=== PATIENT | female | born 1980 | race Two or more races ===

== ENCOUNTER 2016-11-13 20:11 | Emergency (ER) | payer SELFPAY ==
[~2016-11-13] VITALS: Ht 165.1 cm; Wt 92.2 kg
[2016-11-13] MEDS ORDERED: EPINEPHrine 1 MG/ML VIAL ONE (20:30)
[2016-11-13] MEDS ORDERED: EPINEPHrine 1 MG/ML VIAL IM ONE (20:30)
[2016-11-13 20:54] VITALS: BP 123/66
[2016-11-13] MEDS ORDERED: methylPREDNISolone SOD SUCC PF 125 MG/2 ML VIAL. IV ONE (21:00)
[2016-11-13] MEDS ORDERED: FAMOTIDINE 20 MG/2 ML VIAL IVP ONE (21:00)
[2016-11-13] MEDS ORDERED: diphenhydrAMINE 50 MG/ML VIAL IV ONE (21:00)
--- NOTE | 2016-11-13 21:16 | PHYS DOC ---
Past Medical History Past Medical History: No Pertinent History Past Surgical History: No Surgical History Alcohol Use: None Drug Use: None Adult General Chief Complaint Chief Complaint: ALLERGIC REACTION HPI HPI 36-year-old female presenting to the emergency department today with rash and having allergic reaction to unknown substance. She has been having these reactions over the past 6 months and is unsure exactly what is causing them. She reports having seen an supply chain logistics manager but has not gotten to the bottom of it. Her rash started today and has worsened over the past few hours. She denies any new detergents. She reports it happened right after she had a spontaneous vaginal delivery in April. She reports being dyspneic but is saturating well on room air. No stridor present. Review of systems is negative for nausea vomiting diarrhea or abdominal pain. All other review of systems is negative unless otherwise noted in history of present illness. Pertinent physical exam findings: The patient has a uticarial crash generally throughout the entire body. There is mild wheezing bilaterally in the lungs. No stridor present. The patient is breathing comfortably on room air. Otherwise unremarkable. ED course: 36-year-old female presenting with anaphylaxis. Intramuscular epinephrine given along with histamine blocking medications. On reexamination the patient had improved significantly and was subsequently discharged home to follow up with PCP. I also recommended the patient follow up with her supply chain logistics manager to identify the etiology of her anaphylaxis/allergy. She reports having an epinephrine pen at home and does not require a prescription tonight. The patient was then discharged home in stable condition to follow up with their primary care physician over the next 2-3 days. They were to return if their symptoms worsened or if they were concerned for any reason. [id number] discharge instructions and return precautions were given. Patient's questions were answered to their satisfaction. Patient is comfortable plan. Review of Systems Review of Systems SEE ABOVE. Current Medications Current Medications Current Medications Medications (Trade) Dose Ordered Sig/Manpreet Start Time Stop Time Status Last Admin Dose Admin Diphenhydramine HCl (Benadryl) 25 mg 1X ONCE 11/13/16 21:00 11/13/16 21:01 DC 11/13/16 20:50 25 MG Epinephrine HCl (Adrenalin) 0.3 mg 1X ONCE 11/13/16 20:30 11/13/16 20:38 DC 11/13/16 20:35 0.3 MG Famotidine (Pepcid) 20 mg 1X ONCE 11/13/16 21:00 11/13/16 21:01 DC 11/13/16 20:52 20 MG Methylprednisolone Sodium Succinate (SOLU-Medrol 125MG VIAL) 125 mg 1X ONCE 11/13/16 21:00 11/13/16 21:01 DC 11/13/16 20:53 125 MG Allergies Allergies Allergies Coded Allergies Type Severity Reaction Last Updated Verified No Known Drug Allergies 11/12/13 No Physical Exam Physical Exam Constitutional: Well developed, well nourished, no acute distress, non-toxic appearance. [] HENT: Normocephalic, atraumatic, bilateral external ears normal, oropharynx moist, no oral exudates, nose normal. [] Eyes: PERRLA, EOMI, conjunctiva normal, no discharge. Neck: Normal range of motion, no tenderness, supple, no stridor. [] Cardiovascular:Heart rate regular rhythm, no murmur [] Lungs & Thorax: SEE ABOVE Abdomen: Bowel sounds normal, soft, no tenderness, no masses, no pulsatile masses. [] Skin: SEE ABOVE Back: No tenderness, no CVA tenderness. [] Extremities: No tenderness, no cyanosis, no clubbing, ROM intact, no edema. [] Neurologic: Alert and oriented X 3, normal motor function, normal sensory function, no focal deficits noted. [] Psychologic: Affect normal, judgement normal, mood normal. [] Current Patient Data Vital Signs Vital Signs Date Time Temp Pulse Resp B/P (MAP) Pulse Ox O2 Delivery O2 Flow Rate FiO2 11/13/16 20:33 99.6 111 20 146/74 (98) 100 Room Air 99.6 Lab Values Laboratory Tests Test 11/13/16 19:37 POC Urine HCG, Qualitative Hcg negative (Negative) EKG EKG [] Radiology/Procedures Radiology/Procedures [] Course & Med Decision Making Course & Med Decision Making Pertinent Labs and Imaging studies reviewed. (See chart for details) [] Dragon Disclaimer Dragon Disclaimer This electronic medical record was generated, in whole or in part, using a voice recognition dictation system. Departure Departure Impression: Primary Impression: Anaphylaxis Disposition: HOME, SELF-CARE Condition: STABLE Referrals: NO PCP (PCP) SUKI COLON MD Patient Instructions: Anaphylactic Reaction Additional Instructions: Thank you for allowing us to participate in your care today. 1. Follow up with your supply chain logistics manager to continue identifying the etiology of her allergies. 2. If you have breathing difficulties from allergic reaction you may use your epinephrine pen at home and come directly to the closest emergency department. Followup with your primary care physician in 3 days if your symptoms do not improve. Call your Primary Doctor tomorrow and inform them of your visit today. If you do not have a primary care provider you can ask for a list of our primary care providers. Return to the emergency department you have any new or concerning findings. This should be evaluated by the primary care physician and any necessary consulting services for continued management within a few days after discharge. Return to emergency room if you have any new or concerning symptoms including but not limited to fever, chills, nausea, vomiting, intractable pain, any new rashes, chest pain, shortness of air, uncontrolled bleeding, difficulty breathing, and/or vision loss. SHIRLENE CUMMINGS MD Nov 13, 2016 21:16
== END 2016-11-13 21:41 | disposition home or self-care (01) ==
LOC: ER 20:11
DX: T78.2XXA Anaphylactic shock, unspecified, initial encounter (principal); L50.9 Urticaria, unspecified; R06.2 Wheezing; Y92.89 Other specified places as the place of occurrence of the external cause
CPT/HCPCS: 81025; 96372; 96374; 96375; 99284; J0171; J1200; J2930; S0028